=== PATIENT | male | born 1940 | race Caucasian/White ===

== ENCOUNTER 2025-01-13 22:51 | Inpatient (IN) | payer OTHER, SELFPAY ==
[2025-01-13] VITALS (7 sets, daily range): BP systolic 90–116; BP diastolic 50–60; BMI 18.8
[2025-01-13 19:00] LABS: % Basophils 0.3 % (0-2); % Eosinophils 0.2 % (0-6); % Immature Granulocytes 0.8 % (0-0.5); % Lymphocytes 6.8 % (20.5-51.1); % Monocytes 4.9 % (1.7-9.3); Absolute Basophils 0.1 10^3/uL (0-0.2); Absolute Immature Granulocytes 0.2 10^3/uL (0-0.05); Absolute Lymphocytes 1.6 10^3/uL (1.2-3.4); Absolute Monocytes 1.1 10^3/uL (0.1-0.6); Absolute Neutrophils 19.8 10^3/uL (1.4-6.5); Hematocrit 25.2 % (39.0-52.0); Hemoglobin 7.4 g/dL (13.0-18.0); Mean Corp Hgb Conc. 29.4 g/dL (33.0-37.0); Mean Corpuscular Hgb 19.8 pg (27.0-31.0); Mean Corpuscular Volume 67.6 fL (80.0-94.0); Mean Platelet Volume 8.6 fL (7.4-10.4); Nucleated Red Blood Cells % 0 % (-); Platelet Count 629 10^3/uL (130-400); Red Blood Cell Count 3.73 10^6/uL (4.70-6.10); Red Cell Dist. Width 16.2 % (11.5-14.5); White Blood Cell Count 22.8 10^3/uL (4.8-10.8)
[2025-01-13 19:04] LABS: ALT (SGPT) 18 U/L (0-50); AST (SGOT) 22 U/L (17-59); Albumin 3.4 g/dl (3.5-5.0); Alkaline Phosphatase 111 U/L (38-126); Blood Urea Nitrogen 26 mg/dl (9-20); Calcium 10.2 mg/dl (8.4-10.2); Carbon Dioxide 24 mmol/L (22-30); Chloride 105 mmol/L (98-107); Glucose 129 mg/dl (70-99); Potassium 4.7 mmol/L (3.5-5.1); Sodium 138 mmol/L (135-145); Total Bilirubin 0.5 mg/dl (0.2-1.3); Total Protein 6.8 g/dl (6.3-8.2); eGFR > 60.00
--- NOTE | 2025-01-13 20:56 | ED.GENMED ---
History of Present Illness
General
Chief Complaint: Failure to Thrive
Source: patient and family
Exam Limitations: none
Time Seen by Provider: 01/13/25 20:38
History of Present Illness
History of Present Illness:
See MDM
Past History
Past History
ED Past Medical History: Cancer and Other (Sciatica)
ED Past Surgical History: None
Social History
Tobacco: Non-smoker
Alcohol: None
Drug: None
Personal:
Living: with family
Employment: Retired
Family History
Family History: Other (Noncontributory)
Phy Exam
Physical Exam
Physical Exam:
See MDM
Course
Orders/Labs/Results
Orders:
Orders
01/13/25 18:24
Complete Blood Count/With Diff Urgent
Comprehensive Metabolic Panel Urgent
01/13/25 20:52
Type+Screen Urgent
IV Insert/Care/Rem.- Treatment PRN
PTT Urgent
Prothrombin Time Urgent
Pantoprazole 80 mg/100 ml Nss [Protonix] 80 mg in 100 ml IV NOW
Pantoprazole [Protonix IV] 80 mg IV NOW STA
01/13/25 20:56
Lorazepam [Ativan] 0.5 mg IV NOW STA
Abnormal Lab Results
01/13/25
18:24
WBC 22.8 H 10^3/uL
(4.8-10.8)
RBC 3.73 L 10^6/uL
(4.70-6.10)
Hgb 7.4 L g/dL
(13.0-18.0)
Hct 25.2 L %
(39.0-52.0)
MCV 67.6 L fL
(80.0-94.0)
MCH 19.8 L pg
(27.0-31.0)
MCHC 29.4 L g/dL
(33.0-37.0)
RDW 16.2 H %
(11.5-14.5)
Plt Count 629 H 10^3/uL
(130-400)
Abs Immat Gran (auto) 0.2 H 10^3/uL
(0-0.05)
Absolute Neuts (auto) 19.8 H 10^3/uL
(1.4-6.5)
Absolute Monos (auto) 1.1 H 10^3/uL
(0.1-0.6)
Immature Gran % 0.8 H %
(0-0.5)
Neutrophils % 87.0 H %
(42.2-75.2)
Lymphocytes % 6.8 L %
(20.5-51.1)
BUN 26 H mg/dl
(9-20)
Glucose 129 H mg/dl
(70-99)
Albumin 3.4 L g/dl
(3.5-5.0)
01/13/25 18:24
01/13/25 18:24
Vital Signs
Initial and Last Documented VS:
Initial Vital Signs
Temp Pulse Resp BP Pulse Ox
99 F 100 16 97/57 99
01/13/25 18:16 01/13/25 18:16 01/13/25 18:16 01/13/25 18:16 01/13/25 18:16
Last Documented Vital Signs
Temp Pulse Resp BP Pulse Ox
99 F 100 16 97/57 99
01/13/25 18:16 01/13/25 18:16 01/13/25 18:16 01/13/25 18:16 01/13/25 18:16
MDM/Problems Addressed
Differential Diagnosis Includes:
HPI and MDM Narrative:
84-year-old male presenting for evaluation for generalized weakness and decreased p.o. intake. Family states he has a history of esophageal cancer. He used to be on chemotherapy last year but he stopped it after realizing this was supposed to be
lifelong chemo. Over the past few months, patient has had decreased p.o. intake. He states everything tastes like metal. Patient states he did have some taste changes after chemo but states it was never this bad. He does live alone. Family at
bedside very concerned because he is losing weight and appears weak. Patient states he can eat but chooses not to because he does not like the taste. On exam, patient is frail and pale. Blood work was done prior to my assessment. Patient found
to have a hemoglobin of 7.4. I did a rectal exam. Patient has dark stool is guaiac positive. Will start Protonix drip and consent for blood transfusion. Will refrain from blood transfusion pending hemoglobin trending
Physical exam
General: Weak and frail
HEENT: protecting airway. Mildly dry mucous membrane
Neck: appears supple
CV: No evidence of cyanosis. Regular rate and rhythm
Resp: No accessory muscle use
Abd: Non-distended. Soft and nontender
Rectal: Dark stool, guaiac positive
Extremities: No deformities
Neuro: alert
Psych: Normal affect
Skin: Intact
Problems Addressed including Acute and Chronic Conditions affecting care:
1. Decreased p.o. intake
Acuity: acute
Prognosis: stable
Details: Will start IV fluid
2. Upper GI bleed
Acuity: acute
Prognosis: stable
Details: Patient signed consent for blood transfusion if needed. Will start PPI drip. Patient is not on blood thinners
Differential Diagnosis (but not limited to): Upper GI bleed, malnutrition, diverticulosis
Testing considered: CT abd/pelvis but he has a nontender abdomen
Drug therapy (if applicable): OTC meds, please see d/c instruction regarding Rx drugs
Amount and/or Complexity of Data Reviewed
Clinical info obtained from: Patient and family
External data reviewed: N/A
Labs I independently reviewed (but not limited to): Anemia
Radiology: N/A
Pulse Ox: not hypoxic
EKG independently reviewed: N/A
Wallpaper Remover Steam: N/A
Critical Care: The high probability of a clinically significant, sudden or life threatening deterioration of the gastrointestinal system(s) required my full and direct attention, intervention and personal management. The aggregate critical care time
was 33 minutes. This time is in addition to time spent performing reported procedures but includes the following:
[x] Data Review and interpretation
[x] Patient assessment and monitoring of vital signs
[x] Documentation
[x] Medication orders and management
Risk of Complication:
Social Determinants of health: Good social support
Discussed with other providers: Hospitalist
Escalation of Care includes Admit/Obs: Given his inability to tolerate p.o. and with concern for symptomatic anemia, will admit
Occasional wrong word or 'sound a like' substitutions may have occurred due to the inherent limitations of voice recognition software. Read the chart carefully and recognize, using context, where substitutions have occurred.
*Critical Care Note
Total Time (30-74mins, 75-104mins- exclusive of procedures): 33 min
ED Attending Note
-
Portions of this chart may have been created with voice recognition software.� Occasional wrong word or��sound alike� substitutions may have occurred due to the inherent limitations of voice recognition software.
Discharge Plan
Departure
Patient Disposition: Admit
Date of Disposition: 01/13/25
Time of Disposition: 21:06
Admit to: Med/Surg
Presentation/result/management discussed w/ accepting MD/DO: Hospitalist
Discharge Problem:
Symptomatic anemia, UGIB (upper gastrointestinal bleed)
Prescriptions:
No Action
hydrocodone-acetaminophen 1 TABLET tablet
1 - 2 tab PO Q4HPRN PRN (Reason: moderate to severe pain) Qty: 20 0RF
Referrals:
Rebeca Sinha CRNP [Family Provider, General]
Interventions
Interventions:
*Risk Screen - Suicide Last Done: 01/13/25 18:18
*Neglect/Abuse Screening Last Done: 01/13/25 18:18
Discharge Date and Time
Print Language: LAO
--- NOTE | 2025-01-13 21:12 | HPS.HSE ---
Addendum entered and electronically signed by Miguel Fonseca DO 01/13/25 23:34:
Patient seen and examined independently. Agree with findings and plan as set forth by BENTLEY Jefferson.
Patient is an 84y M with [facility] significant for esophageal cancer with CONCRETE SMOOTHER metastasis who presents to ED complaining of weight loss, anorexia, abnormal taste sensation x weeks / months. Patient initially diagnosed with malignancy in 2022. Brain
tumor identified initially and resected. Positive for esophageal primary and PET CT showed esophageal tumor. Patient initially underwent chemotherapy - but stopped this after 6 sessions. His last chemo was September 2023.
Ass:
Anorexia / Weight Loss / Failure to Thrive
Esophageal Cancer
Upper GI Bleed secondary to the above
Acute / Chronic Blood Loss Anemia
Leukocytosis - Likely secondary to malignancy
Plan:
Admit for further evaluation and treatment.
Patient remains uninterested in specific treatment for his malignancy.
He states that his primary goal is to be able to eat.
At present - metallic taste is greatest deterrent, not dysphagia / odynophagia.
? secondary to bleeding.
IV PPI.
Follow H&H and transfuse if needed.
GI evaluation for possible EGD / additional recommendations.
Hospice / Palliative Care discussions prior to discharge.
Original Note:
Family Physician
-
Family Physician: BENTLEY Slade
Chief Complaint
-
failure to thrive
History of Present Illness
Patient is a 84-year-old male with past medical history significant for esophageal cancer who presented to [facility] ED for evaluation of generalized weakness and decreased PO intake. Patient with daughter and son-in-law provided HPI. Patient reports
diagnosis of brain tumor in 2022 and PET scan revealed and brain tumor. Brain tumor was surgically removed and they were informed it appeared the esophageal was primary source. Following brain tumor removal patient was treated at [place] with
chemo for 6 sessions when he elected to forego treatment, last chemo infusion was September of 2023. Patient lives at home alone and is now complaining of decreased appetite, taste of metallic with everything and significant weight loss of 50 pounds
in last few months. Patient denies any difficulty eating just that all foods and beverages taste badly. Patient does report recent severe chills, cough and shortness of breath. Denies fever, chest pain, nausea, vomiting, constipation, diarrhea or
urinary symptoms.
Medical History
Past Medical History
Past Medical History: Reports Other
Additional Past Medical History:
esophageal cancer
Past Surgical History: Reports Other
Additional Past Surgical History:
brain tumor extraction
bilateral inguinal hernias
cervical spine surgery
Social History
Tobacco: Former Smoker (quit 1990)
Alcohol: Occasional
Drug: None
Personal:
Living: Alone
Employment: Retired
Family History
Family History: Not pertinent
Allergies / Home Medications
Allergies reflects when Allergies were last updated in [facility].
Home Medications with original date entered in [facility]
Allergy/Medication List:
Medications on admission are unable to be verified or confirmed at this time.
Review of Systems
-
History Source: Patient
Abdomen/GI: Reports Anorexia (all foods and beverages taste metallic )
Physical Exam
Vital Signs
Vital Signs
Temp Pulse Resp BP Pulse Ox
99 F 100 16 97/57 99
01/13/25 18:16 01/13/25 18:16 01/13/25 18:16 01/13/25 18:16 01/13/25 18:16
Physical Exam
General: Well Developed, Well Nourished, No Apparent Distress, Conversant and Appears Chronically Ill
HEENT: NormoCephalic, Moist mucous membranes, Atraumatic, [place] Conjunctivae, Nose Appears Normal, Ears Appear Normal and Hearing Impaired
Respiratory: Clear
Cardiac: S1/S2 and Regular Rhythm
Breast: Deferred by me
GI: Soft, Non Tender, Non Distended and Normal Bowel Sounds; No Organomegaly
Rectal: Deferred by Provider
Genito-urinary: Deferred by me
Musculoskeletal: No Clubbing, No Cyanosis and No Edema
Skin: Warm and IV/Catheter Site
Neuro: Awake, Alert, AO x 3 and Nonfocal/grossly intact
Psych: Intact Judgment/Insight and Anxious
Laboratory Results
-
01/13/25 18:24
01/13/25 18:24
Laboratory Results
Total Bilirubin 0.5 mg/dl (0.2-1.3) 01/13/25 18:24
AST 22 U/L (17-59) 01/13/25 18:24
ALT 18 U/L (0-50) 01/13/25 18:24
Alkaline Phosphatase 111 U/L (38-126) 01/13/25 18:24
Data Reviewed
-
Lab Data: Labs Reviewed by me (hgb 7.4, hct 25.2, WBC 22.8, Neut 87.0)
Impression/Plan
-
IMPRESSION/PLAN:
#upper GI bleed
#symptomatic anemia
hgb 7.4, hct 25.2
- Admit to telemetry
- Consult GI
- 1 unit PRBCs
- trend H/H
- NPO at midnight
#leukocytosis 2/2 infectious origin vs. malignancy
patient reports cough and shortness of breath
WBC 22.8, Neut 87.0
- chest x-ray pending
#esophageal cancer
treated at [place] for 6 rounds Chemo
patient elected no further treatment after 6th chemo 2023
Extensive conversation regarding goals of care, patient sounds to not want aggressive measures but following conversation is undecided if he wants to pursue Hospice care or aggressive treatment. Patient main complaint is he wants food and beverage
to taste like food and beverage and not metallic.
Code status: DNR
DVT prophylaxis: SCDs
[2025-01-13] MEDS: PROTONIX 100 IV (21:21)
[2025-01-13] MEDS: PROTONIX IV 80 MG IV (21:21)
[2025-01-13] MEDS: ATIVAN 0.5 MG IV (21:21)
[2025-01-13 21:43] LABS: INR 1.17; PT 15.2 Sec (11.4-14.6)
[2025-01-13 21:44] LABS: APTT 27.6 Sec (23.4-35.0)
[2025-01-13] MEDS: FLUSH (NSS) 1 FLUSH IV (22:14)
[2025-01-14] VITALS (11 sets, daily range): BP systolic 94–104; BP diastolic 46–56; BMI 16.6
--- NOTE | 2025-01-14 03:34 | PTCARENOTE ---
Pt brought to unit via stretcher. Pt transferred from stretcher to bed. Pt oriented to room. Pt AAOx3, VSS. Call worley within reach, plan of care on going.
[2025-01-14 04:08] LABS: % Basophils 0.3 % (0-2); % Eosinophils 0.5 % (0-6); % Immature Granulocytes 0.7 % (0-0.5); % Lymphocytes 9.5 % (20.5-51.1); % Monocytes 7.1 % (1.7-9.3); % Neutrophils 81.9 % (42.2-75.2); Absolute Basophils 0.1 10^3/uL (0-0.2); Absolute Eosinophils 0.1 10^3/uL (0-0.7); Absolute Immature Granulocytes 0.1 10^3/uL (0-0.05); Absolute Lymphocytes 1.7 10^3/uL (1.2-3.4); Absolute Monocytes 1.3 10^3/uL (0.1-0.6); Absolute Neutrophils 15.1 10^3/uL (1.4-6.5); Hematocrit 23.3 % (39.0-52.0); Hemoglobin 7.4 g/dL (13.0-18.0); Mean Corp Hgb Conc. 31.8 g/dL (33.0-37.0); Mean Corpuscular Volume 69.3 fL (80.0-94.0); Mean Platelet Volume 8.8 fL (7.4-10.4); Nucleated Red Blood Cells % 0 % (-); Platelet Count 474 10^3/uL (130-400); Red Blood Cell Count 3.36 10^6/uL (4.70-6.10); Red Cell Dist. Width 18.6 % (11.5-14.5); White Blood Cell Count 18.4 10^3/uL (4.8-10.8)
[2025-01-14 04:30] LABS: Blood Urea Nitrogen 24 mg/dl (9-20); Calcium 9.5 mg/dl (8.4-10.2); Carbon Dioxide 25 mmol/L (22-30); Chloride 107 mmol/L (98-107); Estimated Creatinine Clearance 60 ml/min; Glucose 95 mg/dl (70-99); Potassium 3.8 mmol/L (3.5-5.1); Sodium 137 mmol/L (135-145); eGFR > 60.00
[2025-01-14] MEDS: PROTONIX 40 MG PO ×2 (08:33→20:39)
--- NOTE | 2025-01-14 12:10 | W.PN.HOSP.TC ---
Today's Communication/Plan
-
see outlined plan
Assessment / Plan
Assessment / Plan
Assessment:
Anorexia/Weight Loss/Failure to Thrive
Esophageal Cancer, metastatic history with TARIFF CLERK mets. Off treatment >1 year.
- NPO per GI; possible EGD for stenting
- H2 rowdy and PPI For heartburn and reflex symptoms
- consider low dose Klonopin for metallic taste
- family to consider hospice
Chronic Blood Loss Anemia
- s/p 1 unit PRBC
Leukocytosis - Likely secondary to malignancy
- monitor
DVT ppx: SCDs
Code: DNR/DNI
Anticipated Discharge: > 48 hours
Subjective/Interval History
-
Date of Service: January 14, 2025
reports heartburn and reflux, metallic taste
some periods of chronic abd pain
>50 lbs weight loss
Objective Data
-
Labs:
Laboratory Results
01/14/25
03:47
WBC 18.4 H
Hgb 7.4 L
Hct 23.3 L
Plt Count 474 H D
Sodium 137
Potassium 3.8
Chloride 107
Carbon Dioxide 25
BUN 24 H
Creatinine 0.7
Glucose 95
Calcium 9.5
Vital Signs:
Vital Signs
Temp Pulse Resp BP Pulse Ox
98.9 F 69 17 104/52 97
01/14/25 10:54 01/14/25 10:54 01/14/25 10:54 01/14/25 10:54 01/14/25 10:54
I&O
01/13/25 01/14/25 01/15/25
06:59 06:59 06:59
Intake Total 500 / 500
Balance 500 / 500
Physical Exam
-
General: Appears Chronically Ill and Cachectic
HEENT: Normocephalic and Atraumatic
Respiratory: Negative Wheezes
Cardiac: Regular Rhythm and S1/S2
GI: Soft and Nontender
Musculoskeletal: No Edema
Psych: Calm
Data Reviewed
-
Total Time Spent with Patient (in minutes): 41
Labs: Labs Reviewed by me
--- NOTE | 2025-01-14 13:52 | CON.GI ---
Consultation
-
Date/Time Consultation Requested: 01/14/25
Date/Time Consultation Performed: 01/14/25
Requesting Provider:
Performing Provider:
Reason for Consultation: weight loss, esophageal cancer
Medical History
Chief Complaint / HPI
Chief Complaint: altered tase and smell with loss of appetite, weight loss
History of Present Illness:
This is a very pleasant 84-year-old male with past medical history of ICH 01/2023, metastatic esophageal cancer which was initially diagnosed after he presented to [place] 01/2023 after a fall and on CT head was noted to have acute left frontal
parenchymal hemorrhage with mass effect and herniation and he was then transferred to [place] and he says that in [place] he had surgery and had removal of a brain met and was told that the primary cancer was esophageal cancer and was told that
he is not a candidate for treatment because of poor prognosis but he then went for a second opinion 6 months later to [place] and was started on chemotherapy and also was given radiation to the brain for small brain mets.� He says that
unfortunately after that his had in September 2023 and since then he did not go back for the chemotherapy.� He now presents with symptoms of altered taste and smell for the past 6 months especially worsening over the past couple of
weeks with loss of appetite and 50 pound weight loss he had lost about 30 pounds prior to that during the chemotherapy.� He has minimal dysphagia he says that he is mostly not able to eat because of the altered taste he did have a viral illness in
August he thought he had the flu but he also took medication for sinus and he says that since then his symptoms have been worse.� He did not test for COVID at that time.� He did place a call out prior to coming here to [facility] and they told him
to come back for evaluation to see if he can resume chemotherapy.� He also denies any odynophagia.
Past Medical History
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
Past Surgical History: Other (brain tumor removed- met from esophageal ca, bilateral inguinal hernias, cervical spine surgery)
Social History
Tobacco: Former Smoker
Drug: None
Personal:
Family History
Family History: Reviewed & Not Pertinent
Allergies / Home Medications
Allergy/AdvReac Type Severity Reaction Status Date / Time
tetanus and diphtheria Allergy Hives Verified 02/04/23 17:20
toxoids
�Medication �Instructions �Recorded
hydrocodone 5 mg-acetaminophen 325 1 - 2 tab PO Q4HPRN PRN moderate 10/22/20
mg tablet to severe pain ##20
Review of Systems
-
All other systems: A 12 pt ROS was Negative except as stated above in HPI
Vital Signs
Temp Pulse Resp BP Pulse Ox
98.9 F 69 17 104/52 97
01/14/25 10:54 01/14/25 10:54 01/14/25 10:54 01/14/25 10:54 01/14/25 10:54
Physical Exam
Exam
General: Other (Thin elderly male in no acute distress)
HEENT: Normocephalic
Respiratory: Clear
Cardiac: S1/S2 and Regular Rhythm
GI: Soft, Non Tender, Non Distended, Normal Bowel Sounds and Other (Scaphoid abdomen)
Skin: Warm
Neuro: Awake, Alert and Oriented
Psych: Calm
Results
WBC 18.4 10^3/uL (4.8-10.8) H 01/14/25 03:47
Hgb 7.4 g/dL (13.0-18.0) L 01/14/25 03:47
Hct 23.3 % (39.0-52.0) L 01/14/25 03:47
MCV 69.3 fL (80.0-94.0) L 01/14/25 03:47
Plt Count 474 10^3/uL (130-400) H D 01/14/25 03:47
Absolute Neuts (auto) 15.1 10^3/uL (1.4-6.5) H 01/14/25 03:47
PT 15.2 Sec (11.4-14.6) H 01/13/25 21:22
INR 1.17 01/13/25 21:22
APTT 27.6 Sec (23.4-35.0) 01/13/25 21:22
Sodium 137 mmol/L (135-145) 01/14/25 03:47
Potassium 3.8 mmol/L (3.5-5.1) 01/14/25 03:47
Chloride 107 mmol/L (98-107) 01/14/25 03:47
Carbon Dioxide 25 mmol/L (22-30) 01/14/25 03:47
BUN 24 mg/dl (9-20) H 01/14/25 03:47
Creatinine 0.7 mg/dL (0.7-1.3) 01/14/25 03:47
Calcium 9.5 mg/dl (8.4-10.2) 01/14/25 03:47
Total Bilirubin 0.5 mg/dl (0.2-1.3) 01/13/25 18:24
AST 22 U/L (17-59) 01/13/25 18:24
ALT 18 U/L (0-50) 01/13/25 18:24
Alkaline Phosphatase 111 U/L (38-126) 01/13/25 18:24
Diagnostic Image Results:
Prior GI Procedures:
EGD: at [facility] unsure of date or findings
Colonoscopy: none
Assessment / Plan
-
84-year-old male with history of metastatic esophageal cancer with known brain mets with intracranial hemorrhage status post resection of metastatic brain lesion in January 2023 at [place] and then received 6 months later chemotherapy and radiation
to the brain at [place] he discontinued treatment in September 2023. He now presents with altered taste and smell with loss of appetite and over 50 pound weight loss since August after also having a viral illness like symptoms. Symptoms are
likely multifactorial from underlying known esophageal cancer and likely has had progression of brain mets and could also have been postviral unclear if he had COVID in August. He currently is not having much trouble swallowing he really wants the
'altered taste and smell fixed' which unfortunately may be related to recurrent brain mets. Discussed with Dr. Stauffer will get an MRI of the brain he currently wants to hold off on esophageal stent since he is able to swallow most foods. I
discussed with daughter and patient at bedside at length he also is considering going back to [place] and resuming chemotherapy and they wanted to hold off on CT chest abdomen pelvis to assess progression of disease.
Microcytic anemia most likely multifactorial from chronic blood loss from known esophageal cancer currently has no overt bleeding and likely also component of anemia of chronic disease. Will check iron studies, B12 and folic acid. may benefit from
iron infusion if has iron deficiency.
Data Reviewed
-
CT Scan: Report Reviewed by me
Old Records: Reviewed
-
-
Thank you for consultation and allowing me to participate in the patient's care. Please call the container coordinator GI physician during the after hours with any questions or concerns.
[2025-01-14] MEDS: FERRLECIT 110 MG IV (15:02)
--- NOTE | 2025-01-14 15:20 | W.PN.UPDATE ---
Update Note
Progress Note Update
Received a TT from that he had discussed with patient and daughter after my discussion with them and now they are agreeable for an endoscopy to assess extent of tumor and to see if he has any obstruction and also to see if the tumor is
bleeding given microcytic anemia although I think his anemia may be from chronic blood loss related to the esophageal mass. Will schedule for endoscopy tomorrow, MRI brain today, continue PPI. started him on full liquid diet for tonight n.p.o.
after midnight
[2025-01-14 15:42] LABS: Iron 28 ug/dl (49-181)
[2025-01-14 15:51] LABS: Percent Saturation 11 % (20-50); Total Iron Binding Capacity 248 ug/dl (261-462)
[2025-01-14 16:18] LABS: Ferritin 19.2 ng/ml (17.9-464.0)
--- NOTE | 2025-01-14 16:44 | CM ---
Patient seen at bedside with daughter
IA Completed
Dx: symptomatic anemia, UGIB
PMH: esophageal cancer with [employer] HISTORIAN metastasis (intially dx 2022)
underwent chemotherapy - but stopped this after 6 sessions
endoscopy tomorrow, MRI brain
Patient lives alone in a 1 story home, 1 step to enter
PLOF: Independent no assistive device used
DME: [facility]
Denies VN/Rehab
PCP: Rebeca Sinha
PHARMACY: [address], [place]
PLAN: tbd, follow hospital progress, CM to continue to follow for needs
[2025-01-14 16:50] LABS: Folate 11.2 ng/ml (2.76-20); Vitamin B12 965 pg/ml (239-931)
[2025-01-14] MEDS: PEPCID 20 MG PO (20:39)
[2025-01-15] VITALS (10 sets, daily range): BP systolic 18–104; BP diastolic 46–56
[2025-01-15 05:03] LABS: Hematocrit 23.4 % (39.0-52.0); Hemoglobin 7.3 g/dL (13.0-18.0); Mean Corp Hgb Conc. 31.2 g/dL (33.0-37.0); Mean Corpuscular Hgb 21.7 pg (27.0-31.0); Mean Corpuscular Volume 69.4 fL (80.0-94.0); Mean Platelet Volume 8.6 fL (7.4-10.4); Platelet Count 457 10^3/uL (130-400); Red Blood Cell Count 3.37 10^6/uL (4.70-6.10); Red Cell Dist. Width 18.6 % (11.5-14.5); White Blood Cell Count 17.1 10^3/uL (4.8-10.8)
[2025-01-15 05:33] LABS: Blood Urea Nitrogen 17 mg/dl (9-20); Calcium 9.8 mg/dl (8.4-10.2); Carbon Dioxide 28 mmol/L (22-30); Chloride 107 mmol/L (98-107); Estimated Creatinine Clearance 70 ml/min; Glucose 82 mg/dl (70-99); Potassium 3.9 mmol/L (3.5-5.1); Sodium 138 mmol/L (135-145); eGFR > 60.00
[2025-01-15] MEDS: PROTONIX PO (08:10)
[2025-01-15] MEDS: PEPCID PO (08:10)
--- NOTE | 2025-01-15 08:54 | PN.CDI ---
CDI
- -
CDI:
Physician Documentation Request
Admit Date: 01/13/25 22:51
Dear Doctor Xiomy,
Clinical Indicators:
Patient admitted with weight loss & failure to thrive; PMH includes esophageal cancer.
01/14 note/assessment: -'...56 lb (32%) weight loss in 1 year significant.'
-Subcutaneous Loss: Rib Cage, Orbital - Severe
-Muscle Loss: Calf, Quads - Moderate Clavicle, Temporal -Severe
-'With < 75% estimated needs > 1 month, > 20% weight loss in 1 year and observed
muscle and fat wasting pt meets AND/ASPEN criteria for severe protein calorie
malnutrition of chronic illness.
Based on the above information and your assessment, which of the following most accurately represents the patient's nutritional status?
Severe Protein Calorie Malnutrition
Other (please specify)
Martin Criteria ([facility] Hospitalist 2017)
2 or more criteria must be present for either
non severe or severe malnutrition
Note that the criteria differs related to the
presence of an acute or chronic illness
Acute Illness Chronic Illness
Energy Intake Non Severe: <75% for >7 days Non Severe: <75% for >1 month
Severe: <50% for >5 days Severe: <75% for >1 month
Weight Loss Non Severe: 1-2% over 1 week Non Severe: 5% over 1 month
5% over 1 month 7.5% over 3 months
7.5% over 3 months 10% over 6 months
1 year N/A 20% over 1 year
Severe: >2% over 1 week Severe: >5% over 1 month
>5% over 1 month >7.5% over 3 months
>7.5% over 3 months >10% over 6 months
1 year N/A >20% over 1 year
Body Fat Non Severe: Mild Decrease Non Severe: Mild Loss
Severe: Moderate Decrease Severe: Severe Loss
Muscle Mass Non Severe: Mild Decrease Non Severe: Mild Loss
Severe: Moderate Decrease Severe: Severe Loss
Fluid Accumulation Non Severe: Mild Accumulation Non Severe: Mild Accumulation
Severe: Moderate to severe Severe: Moderate to severe
accumulation accumulation
Reduced Plugger Strength Non Severe: N/A Non Severe: N/A
Severe: Measurably reduced Severe: Measurably reduced
Additional criteria that can be used to Determine if Mild or Moderate Malnutrition ([employer]ck Manual 2018)
Mild Moderate Severe
Albumin gm/dl <3.0 gm/dl <2.5 gm/dl <2.0 gm/dl
Pre Albumin mg/dl <15 gm/dl <10 mg/dl <5.0 mg/dl
BMI <18.5 <17 <16
Use of terms such as suspected, likely, concern for, or probable (associated with a specific diagnosis that is being evaluated, monitored, or treated as if it exists) are acceptable and can be coded in the inpatient setting, when documented at the
time of discharge.
Thank you,
CHAPIS Pozo RN
CDI Specialist
available via tiger text
Please use your independent medical judgment in providing your response.
--- NOTE | 2025-01-15 09:22 | W.PN.HOSP.TC ---
Today's Communication/Plan
-
MRI reviewed with family
for EGD Today
continue IV iron
Assessment / Plan
Assessment / Plan
Assessment:
Anorexia/Weight Loss/Failure to Thrive
Esophageal Cancer, metastatic history with AVIONICS SUPERVISOR mets. Off treatment >1 year.
- NPO per GI for EGD today to evaluate abd pain (evaluate for ulcer/bleeding)
- H2 rowdy and PPI For heartburn and reflex symptoms
- consider low dose Klonopin for metallic taste
- soft diet when able
Esophageal Cancer, metastatic history with AVIONICS SUPERVISOR mets. Off treatment >1 year.
- family to consider hospice if not planning to return for treatment (was treated at [facility])
- MRI brain: enhancing mass with associated white matter edema within the anterior right frontal lobe, which very likely represents a metastatic lesion.
Chronic Blood Loss Anemia
- s/p 1 unit PRBCs
- IV iron course, day 2
Leukocytosis - Likely secondary to malignancy
- monitor
severe protein calorie malnutrition of chronic illness.
DVT ppx: SCDs
Code: DNR/DNI
Anticipated Discharge: 24 - 48 hours
Subjective/Interval History
-
Date of Service: January 15, 2025
reports taste slightly improved and ate better last evening
for EGD today
Objective Data
-
Labs:
Laboratory Results
01/15/25
04:48
WBC 17.1 H
Hgb 7.3 L
Hct 23.4 L
Plt Count 457 H
Sodium 138
Potassium 3.9
Chloride 107
Carbon Dioxide 28
BUN 17
Creatinine 0.6 L
Glucose 82
Calcium 9.8
Vital Signs:
Vital Signs
Temp Pulse Resp BP Pulse Ox
98.8 F 66 18 104/52 98
01/15/25 07:05 01/15/25 07:05 01/15/25 07:05 01/15/25 07:05 01/15/25 07:05
I&O
01/14/25 01/15/25 01/16/25
06:59 06:59 06:59
Intake Total 500 / 500
Balance 500 / 500
Physical Exam
-
General: No Apparent Distress, Appears Chronically Ill and Cachectic
HEENT: Normocephalic
Respiratory: Negative Wheezes
Cardiac: Regular Rhythm and S1/S2
GI: Soft and Nontender
Neuro: AO x 3
Psych: Calm
Data Reviewed
-
Total Time Spent with Patient (in minutes): 41
Labs: Labs Reviewed by me
--- NOTE | 2025-01-15 11:20 | W.PN.UPDATE ---
Update Note
Progress Note Update
EGD with large partially obstructing esophageal mass circumferential but was able to pass scope into the stomach and duodenum. He says his taste has improved with PPI and he has not had a metallic taste anymore. He did not want esophageal
stenting. 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 Discussed with Dr. Stauffer patient to follow-up as soon as possible at [place] with his oncologist to discuss radiation to the brain again and resuming chemotherapy if he
still a candidate. Continue PPI twice daily and 40 mg of Pepcid at bedtime. GI will sign off and will be available as needed
--- NOTE | 2025-01-15 11:27 | CM ---
PT/OT to eval
patient for EGD
MRI completed
PLAN: TBD, follow hospital progress, CM to follow for needs
--- NOTE | 2025-01-15 13:49 | WOUNDNOTE ---
WOC RN NOTE: Chart reviewed. Patient at high risk for skin breakdown due to poor intake and poor mobility. Spoke to RNCarla and recommended air overlay to prevent skin injury. Carla agreeable and stated she will place air overlay.
[2025-01-15] MEDS: FERRLECIT 110 MG IV (14:08)
[2025-01-15] MEDS: ZOFRAN 4 MG IV (15:48)
[2025-01-15] MEDS: MORPHINE SULFATE 1 MG IV (17:10)
[2025-01-15] MEDS: NSS 1000 IV (17:10)
[2025-01-15] MEDS: PROTONIX 40 MG PO (21:36)
[2025-01-15] MEDS: PEPCID 20 MG PO (21:36)
[2025-01-16] VITALS (10 sets, daily range): BP systolic 86–111; BP diastolic 45–64; PULSE 55–86; O2SAT 94–100
[2025-01-16] MEDS: TYLENOL 650 MG PO (03:37)
[2025-01-16 05:20] LABS: Hematocrit 23.4 % (39.0-52.0); Hemoglobin 7.2 g/dL (13.0-18.0); Mean Corp Hgb Conc. 30.8 g/dL (33.0-37.0); Mean Corpuscular Hgb 21.4 pg (27.0-31.0); Mean Corpuscular Volume 69.6 fL (80.0-94.0); Mean Platelet Volume 8.9 fL (7.4-10.4); Platelet Count 456 10^3/uL (130-400); Red Blood Cell Count 3.36 10^6/uL (4.70-6.10); White Blood Cell Count 18.3 10^3/uL (4.8-10.8)
[2025-01-16 05:41] LABS: Blood Urea Nitrogen 14 mg/dl (9-20); Calcium 9.7 mg/dl (8.4-10.2); Carbon Dioxide 26 mmol/L (22-30); Chloride 109 mmol/L (98-107); Estimated Creatinine Clearance 70 ml/min; Glucose 79 mg/dl (70-99); Sodium 138 mmol/L (135-145); eGFR > 60.00
--- NOTE | 2025-01-16 08:18 | W.PN.HOSP.TC ---
Today's Communication/Plan
-
Consulted hospice
Assessment / Plan
Assessment / Plan
Impression:
Patient is 84 years old male with esophageal cancer (hx�of TABLE CUT OFF SAW OPERATOR�mets�with chemo/radiation � stopped treatment 1 year ago due to side effects). In the interim has become weaker/lost weight and also anemia. Also with poor appetite, metallic taste for
food and GERD symptoms/abd�pain. PPI/H2 rowdy initiated. EGD with large esophageal tumor burden - patient refuses stent placement. Soft diet and assessing for tolerance. MRI brain shows R frontal mets lesion (previously had L frontal lesion) .
Records are recommended home physical therapy.
Discussed hospice with patient and daughter, hospice team consulted
Assessment/plan:
Anorexia/Weight Loss/Failure to Thrive
Esophageal Cancer, metastatic history with TABLE CUT OFF SAW OPERATOR mets. Off treatment >1 year.
- Status post EGD with large partially obstructing esophageal mass circumferential
- Patient refused esophageal stenting
- GI signed off
01/16
Discussed hospice with patient and daughter at bedside.
Hospice team consulted
Esophageal Cancer, metastatic history with TABLE CUT OFF SAW OPERATOR mets. Off treatment >1 year.
- family to consider hospice if not planning to return for treatment (was treated at [facility])
- MRI brain: enhancing mass with associated white matter edema within the anterior right frontal lobe, which very likely represents a metastatic lesion.
Chronic Blood Loss Anemia
- s/p 1 unit PRBCs
- IV iron course, day 2
Leukocytosis
- Likely secondary to malignancy
- monitor
severe protein calorie malnutrition of chronic illness.
DVT ppx: SCDs
Code: DNR/DNI
Total time spent on today's encounter was 65 minutes which included time spent in counseling the patient/family regarding diagnosis and treatment plan as listed above, goals of care, and symptom management. Case was discussed with nursing staff,
specialists, and care coordinators/case management. All labs and imaging personally reviewed by me. Remainder the time spent in detailed review of previous records, lab data, imaging, and other medical provider documentation.
Anticipated Discharge: Within 24 hours
Subjective/Interval History
-
Date of Service: January 16, 2025
Physical therapy recommending home PT, discussed with patient and daughter at bedside.
Discussed endoscopy report with the patient and his daughter, discussed hospice as an option.
Patient's daughter would like to speak to hospice team
Hospice team consulted.
Objective Data
-
Labs:
Laboratory Results
01/16/25
04:37
WBC 18.3 H
Hgb 7.2 L
Hct 23.4 L
Plt Count 456 H
Sodium 138
Potassium 4.0
Chloride 109 H
Carbon Dioxide 26
BUN 14
Creatinine 0.6 L
Glucose 79
Calcium 9.7
Vital Signs:
Vital Signs
Temp Pulse Resp BP Pulse Ox
97.6 F 56 17 88/46 97
01/16/25 07:00 01/16/25 07:00 01/16/25 07:00 01/16/25 08:12 01/16/25 07:00
I&O
01/15/25 01/16/25 01/17/25
06:59 06:59 06:59
Intake Total 360 / 360
Balance 360 / 360
Physical Exam
-
General: Comfortable and Appears Chronically Ill
HEENT: Normocephalic, Atraumatic, Moist Mucous Membranes, No Ptosis, PERRLA and Nose Appears Normal
Respiratory: Clear to Auscultation and Non Labored Respirations
Cardiac: Regular Rhythm and S1/S2
Breast: Deferred by me
GI: Soft, Nontender, Nondistended and Normal Bowel Sounds
Genito-urinary: No Costovertebral Tender
Musculoskeletal: No Clubbing, No Cyanosis and No Edema
Skin: Warm
Neuro: Awake, Alert, Oriented, AO x 3 and No Motor Deficits
Psych: Calm
Data Reviewed
-
Diagnostic Radiology: Image personally visualized and interpreted and Report Reviewed by me
CT Scan: Image personally visualized and interpreted and Report Reviewed by me
Ultrasound: Image personally visualized and interpreted and Report Reviewed by me
MRI: Image personally visualized and interpreted and Report Reviewed by me
Medical Tests (Nuc Med, Echo etc): Image personally visualized and interpreted and Report Reviewed by me
Labs: Labs Reviewed by me
Old Records: Reviewed
[2025-01-16] MEDS: PROTONIX 40 MG PO ×2 (08:27→20:31)
[2025-01-16] MEDS: PEPCID 20 MG PO ×2 (08:27→20:31)
[2025-01-16] MEDS: NSS 250 IV (08:27)
--- NOTE | 2025-01-16 11:42 | CM ---
Addendum entered by Edna Adams 01/16/25 15:24:
Patient not ready for hospice at this point. Daughter Sherri has all information for hospice
spoke with hospitalist & palliative care referral placed in [facility]port. Spoke with Nicole at Palliative care
Patient will stay with daughter at her home at [address] [place] [address] Sinha's (PCP) office & they stated patient has not been seen at the office since 2020 - not considered a patient currently
Information given to daughter on Primary [facility] Residency Program & and caregiver resources given to her
PLAN: Home with daughter, palliative care to follow
family to transport
Original Note:
Met with patient and daughter
CM consult completed - hospice
options reviewed - hospice prefer
tt Aundrea Batista from Hospice will have nurse meet with daughter
referral placed in [facility]port
PLAN: Hospice to eval
--- NOTE | 2025-01-16 13:32 | HOSPNOTE ---
Met with patient's daughter to discuss hospice care, patient was sleeping during the conversation. Reviewed the hospice philosphy, understanding stated. Patients daughter stated she feels hospice care would be appropriate as patient wants to go home
and be comfortable, but feels he may not be ready due to patient being an extremely private individual. Patients daughter requested this RN stop in later today to visit with patient and review hospice care.
[2025-01-16] MEDS: FERRLECIT 110 MG IV (15:12)
--- NOTE | 2025-01-16 16:20 | VNURNOTE ---
Chart reviewed. [facility] liaison put on speaker phone with FOX Verdin, daughter Mabel, and pt. Explained that [facility] can see patient once he is seen by PCP or Residency Clinic. Daughter Mabel verbalized understanding. She will make appt early next week
w/clinic. Explained that [facility] will contact her the end of next week to arrange start of care visit. Noted on referral. [facility] referral placed in [facility].
--- NOTE | 2025-01-16 17:06 | HOSPNOTE ---
Late entry: met with patient in his room to discuss hospice care. Patient refuses at this time, states he does not feel like hospice services are needed. Reviewed with patient and his daughter to contact hospice if patient would like hospice care,
hospice number provided.
[2025-01-16] MEDS: ProAmatine 10 MG PO (17:18)
[2025-01-16] MEDS: ZOFRAN 4 MG IV (18:18)
--- NOTE | 2025-01-16 23:15 | PTCARENOTE ---
Patient's blood pressure was 97/45 and upon recheck it was 96/46. KASH Caldwell notified. Will continue to monitor.
[2025-01-17 03:37] VITALS: BP 103/48
[2025-01-17 05:09] LABS: Hemoglobin 7.2 g/dL (13.0-18.0); Mean Corpuscular Hgb 21.2 pg (27.0-31.0); Mean Corpuscular Volume 70.8 fL (80.0-94.0); Mean Platelet Volume 9.1 fL (7.4-10.4); Platelet Count 468 10^3/uL (130-400); Red Blood Cell Count 3.39 10^6/uL (4.70-6.10); Red Cell Dist. Width 19.4 % (11.5-14.5); White Blood Cell Count 18.5 10^3/uL (4.8-10.8)
[2025-01-17 06:10] LABS: Blood Urea Nitrogen 13 mg/dl (9-20); Calcium 9.4 mg/dl (8.4-10.2); Carbon Dioxide 25 mmol/L (22-30); Chloride 109 mmol/L (98-107); Estimated Creatinine Clearance 70 ml/min; Glucose 86 mg/dl (70-99); Sodium 137 mmol/L (135-145); eGFR > 60.00
[2025-01-17 07:22] VITALS: BP 83/43
[2025-01-17] MEDS: PROTONIX 40 MG PO (07:45)
[2025-01-17] MEDS: PEPCID 20 MG PO (07:45)
[2025-01-17] MEDS: ProAmatine 10 MG PO (07:45)
[2025-01-17 08:27] VITALS: BP 97/50
--- NOTE | 2025-01-17 10:48 | W.PN.HOSP.TC ---
Today's Communication/Plan
-
Discharge home today
Assessment / Plan
Assessment / Plan
Impression:
Patient is 84 years old male with esophageal cancer (hx�of FINISHER PLATE�mets�with chemo/radiation � stopped treatment 1 year ago due to side effects). In the interim has become weaker/lost weight and also anemia. Also with poor appetite, metallic taste for
food and GERD symptoms/abd�pain. PPI/H2 rowdy initiated. EGD with large esophageal tumor burden - patient refuses stent placement. Soft diet and assessing for tolerance. MRI brain shows R frontal mets lesion (previously had L frontal lesion) .
Records are recommended home physical therapy.
Discussed hospice with patient and daughter, hospice team consulted.
01/17
Patient will be discharged home with home health care with follow-up with palliative team as op.
Assessment/plan:
Anorexia/Weight Loss/Failure to Thrive
Esophageal Cancer, metastatic history with FINISHER PLATE mets. Off treatment >1 year.
- Status post EGD with large partially obstructing esophageal mass circumferential
- Patient refused esophageal stenting
- GI signed off
01/16
Discussed hospice with patient and daughter at bedside.
Hospice team consulted.
01/17
Patient will be discharged home with home health care with follow-up with palliative team as op.
Esophageal Cancer, metastatic history with FINISHER PLATE mets. Off treatment >1 year.
- family to consider hospice if not planning to return for treatment (was treated at [facility])
- MRI brain: enhancing mass with associated white matter edema within the anterior right frontal lobe, which very likely represents a metastatic lesion.
Chronic Blood Loss Anemia
- s/p 1 unit PRBCs
- IV iron course, day 2
Leukocytosis
- Likely secondary to malignancy
- monitor
severe protein calorie malnutrition of chronic illness.
DVT ppx: SCDs
Code: DNR/DNI
Total time spent on today's encounter was 65 minutes which included time spent in counseling the patient/family regarding diagnosis and treatment plan as listed above, goals of care, and symptom management. Case was discussed with nursing staff,
specialists, and care coordinators/case management. All labs and imaging personally reviewed by me. Remainder the time spent in detailed review of previous records, lab data, imaging, and other medical provider documentation.
Anticipated Discharge: Today
Subjective/Interval History
-
Date of Service: January 17, 2025
Patient seen and examined at bedside, daughter at bedside, denies any chest pain or shortness of breath, no abdominal pain, no nausea, no vomiting, no diarrhea or constipation.
Objective Data
-
Labs:
Laboratory Results
01/17/25
04:43
WBC 18.5 H
Hgb 7.2 L
Hct 24.0 L
Plt Count 468 H
Sodium 137
Potassium 4.0
Chloride 109 H
Carbon Dioxide 25
BUN 13
Creatinine 0.6 L
Glucose 86
Calcium 9.4
Vital Signs:
Vital Signs
Temp Pulse Resp BP Pulse Ox
99 F 65 14 97/50 95
01/17/25 08:27 01/17/25 08:27 01/17/25 08:27 01/17/25 08:27 01/17/25 08:27
I&O
01/16/25 01/17/25 01/18/25
06:59 06:59 06:59
Intake Total 360 / 360 600 / 600
Balance 360 / 360 600 / 600
Physical Exam
-
General: Comfortable and Appears Chronically Ill
HEENT: Normocephalic, Atraumatic, Moist Mucous Membranes, No Ptosis, PERRLA and Nose Appears Normal
Respiratory: Clear to Auscultation and Non Labored Respirations
Cardiac: Regular Rhythm and S1/S2
Breast: Deferred by me
GI: Soft, Nontender, Nondistended and Normal Bowel Sounds
Genito-urinary: No Costovertebral Tender
Musculoskeletal: No Clubbing, No Cyanosis and No Edema
Skin: Warm
Neuro: Awake, Alert, Oriented, AO x 3 and No Motor Deficits
Psych: Calm
Data Reviewed
-
Diagnostic Radiology: Image personally visualized and interpreted and Report Reviewed by me
CT Scan: Image personally visualized and interpreted and Report Reviewed by me
Ultrasound: Image personally visualized and interpreted and Report Reviewed by me
MRI: Image personally visualized and interpreted and Report Reviewed by me
Medical Tests (Nuc Med, Echo etc): Image personally visualized and interpreted and Report Reviewed by me
Labs: Labs Reviewed by me
Old Records: Reviewed
--- NOTE | 2025-01-17 11:34 | W.DCSUMMARY ---
Discharge Summary
Discharge Data
Date of Admission: 01/13/25
Date of Discharge: 01/17/25
-
Pending Results: No
Hospital Course
Hospital course
Patient is 84 years old male with esophageal cancer (hx�of MARKETING OUTREACH COORDINATOR�mets�with chemo/radiation � stopped treatment 1 year ago due to side effects). In the interim has become weaker/lost weight and also anemia. Also with poor appetite, metallic taste for
food and GERD symptoms/abd�pain. PPI/H2 rowdy initiated. EGD with large esophageal tumor burden - patient refuses stent placement. Soft diet and assessing for tolerance. MRI brain shows R frontal mets lesion (previously had L frontal lesion) .
Records are recommended home physical therapy.
Discussed hospice with patient and daughter, hospice team consulted.
01/17
Patient will be discharged home with home health care with follow-up with palliative team as op.
During hospitalization patient was treated from the following
Anorexia/Weight Loss/Failure to Thrive
Esophageal Cancer, metastatic history with MARKETING OUTREACH COORDINATOR mets. Off treatment >1 year.
- Status post EGD with large partially obstructing esophageal mass circumferential
- Patient refused esophageal stenting
- GI signed off
01/16
Discussed hospice with patient and daughter at bedside.
Hospice team consulted.
01/17
Patient will be discharged home with home health care with follow-up with palliative team as op.
Esophageal Cancer, metastatic history with MARKETING OUTREACH COORDINATOR mets. Off treatment >1 year.
- family to consider hospice if not planning to return for treatment (was treated at [facility])
- MRI brain: enhancing mass with associated white matter edema within the anterior right frontal lobe, which very likely represents a metastatic lesion.
Chronic Blood Loss Anemia
- s/p 1 unit PRBCs
- IV iron course, day 2
Leukocytosis
- Likely secondary to malignancy
- monitor
severe protein calorie malnutrition of chronic illness.
DVT ppx: SCDs
Code: DNR/DNI
Total time spent on today's encounter was 40 minutes which included time spent in counseling the patient/family regarding diagnosis and treatment plan as listed above, goals of care, and symptom management. Case was discussed with nursing staff,
specialists, and care coordinators/case management. All labs and imaging personally reviewed by me. Remainder the time spent in detailed review of previous records, lab data, imaging, and other medical provider documentation.
Anticipated Discharge: Today
Discharge Plan
-
Patient Disposition: Home (Routine Discharge)
Discharge Diagnosis/Procedures: Metastatic cervical cancer
Blood loss anemia
Diet: Regular and Other diet
Additional Diets: Soft and small bites
Activity: With assistance and As tolerated
Other Services: PT and OT
Referrals:
Sol Pedraza [facility]ZER PERSON [Specified Professional Personl, Palliative Care] - in less than 1 week
Rebeca Sinha CRNP [Family Provider, General]
Prescriptions:
New
midodrine 5 mg Tablet
10 mg PO TID Qty: 90 0RF
Rx Instructions:
Hold for elevated BP>110
famotidine 20 mg Tablet
20 mg PO BID 30 Days Qty: 60 0RF
pantoprazole 40 mg Tablet,Delayed Release (Dr/Ec)
40 mg PO BID Qty: 30 0RF
oxycodone 5 mg tablet
5 mg PO Q8H PRN (Reason: Sever pain) Qty: 20 0RF
acetaminophen 325 mg Tablet
650 mg PO Q6HPRN PRN (Reason: mild pain) Qty: 60 0RF
ondansetron 4 mg tablet,disintegrating
4 mg PO HS PRN (Reason: nausea and vomiting) 10 Days Qty: 30 0RF
ferrous sulfate 325 mg (65 mg iron) tablet
325 mg PO DAILY Qty: 30 0RF
Discontinued
hydrocodone-acetaminophen 1 TABLET tablet
1 - 2 tab PO Q4HPRN PRN (Reason: moderate to severe pain) Qty: 20 0RF
Discharge Orders:
Discharge Patient (As Directed); Ordered 01/17/25
Ordered By: Viktor Stark
Discharge Date and Time
Discharge Date/Time: 01/17/25 11:32
Print Language: [place]
== END 2025-01-17 11:32 | disposition home health service (06) | DRG 374 ==
LOC: 3 WEST ACU 22:51
PROVIDERS: Emergency Medicine; Internal Medicine; Nurse Practitioner Family; ADMITTING PHYSICIAN Hospitalist; ATTENDING PHYSICIAN General Practice; EMERGENCY PHYSICIAN Student in an Organized Health Care Education/Training Program; FAMILY PHYSICIAN Nurse Practitioner; OTHER PHYSICIAN Internal Medicine Gastroenterology
PROC: 30243N1 Transfusion of Nonautologous Red Blood Cells into Central Vein, Percutaneous Approach (ICD-10-PCS; 2025-01-13)
PROC: 0DB28ZX Excision of Middle Esophagus, Via Natural or Artificial Opening Endoscopic, Diagnostic (ICD-10-PCS; 2025-01-15)
PROC: 0DB38ZX Excision of Lower Esophagus, Via Natural or Artificial Opening Endoscopic, Diagnostic (ICD-10-PCS; 2025-01-15)
DX: C15.4 Malignant neoplasm of middle third of esophagus (principal); E43 Unspecified severe protein-calorie malnutrition; C16.0 Malignant neoplasm of cardia; C79.31 Secondary malignant neoplasm of brain; K92.2 Gastrointestinal hemorrhage, unspecified; Z66 Do not resuscitate; D50.0 Iron deficiency anemia secondary to blood loss (chronic); D72.829 Elevated white blood cell count, unspecified; R62.7 Adult failure to thrive; M54.30 Sciatica, unspecified side; Z87.891 Personal history of nicotine dependence; Z92.3 Personal history of irradiation
CPT/HCPCS: 88305; 36430; 70553; 71046; 80048; 80053; 82607; 82728; 82746; 83540; 83550; 85025; 85027; 85610; 85730; 86850; 86900; 86901; 86920; 88342; 96365; 96366; 96375; 97116; 97163; 97167; 97535; 99291; A9575; J2916; P9016